=== PATIENT | female | born 1930 | race Caucasian/White ===

== ENCOUNTER 2019-08-30 05:14 | Inpatient (IN) ==
--- NOTE | 2019-08-30 05:31 | ERNOTE ---
Lower Extremity HPI - Narrative Date of Service: 08/30/19 - General Lower Extremities Pain: hip: left - Pain in the left hip Time Seen by Provider: 08/30/19 05:27 Source: EMS notes reviewed, correction records Exam Limitations: clinical condition - Immun/Allergies/Home Medications Immunizations: IMMUNIZATION HX Immunizations Up to Date Yes History of Influenza Vaccine Yes Hx Pneumococcal Vaccination No Allergies/Adverse Reactions: Allergies Allergy/AdvReac Type Severity Reaction Status Date / Time No Known Allergies Allergy Verified 08/30/19 05:21 Home Medications: HOME MEDICATIONS melatonin 10 mg tablet 10 mg PO DAILY 12/05/18 [Last Taken Unknown] naproxen sodium 220 mg tablet 220 mg PO BID PRN 12/05/18 [Last Taken Unknown] albuterol sulfate 2.5 mg INHALATION Q6H PRN #90 ml 12/08/18 [Last Taken Unknown] albuterol sulfate 90 mcg/actuation aerosol inhaler 2 inh IH Q4H PRN #8.5 g 12/09/18 [Last Taken Unknown] Albuterol Sulfate [Proair Hfa] 2 puff INHALATION Q4H PRN 08/30/19 [Last Taken Unknown] Amlodipine Besylate 2.5 mg PO DAILY 08/30/19 [Last Taken Unknown] Lisinopril/Hydrochlorothiazide [Lisinopril-Hctz 10-12.5 mg Tab] 1 ea PO DAILY 08/30/19 [Last Taken Unknown] Meloxicam 7.5 mg PO DAILY 08/30/19 [Last Taken Unknown] Memantine HCl 5 mg PO BID 08/30/19 [Last Taken Unknown] Menthol [Biofreeze (menthol)] 4 TOPICAL .COMPLEX PRN 08/30/19 [Last Taken Unkno wn] Montelukast Sodium [Singulair] 10 mg PO DAILY 08/30/19 [Last Taken Unknown] risperiDONE [Risperidone] 0.5 mg PO DAILY 08/30/19 [Last Taken Unknown] - History of Present Illness Narrative: 89-year-old female lives in the [facility] was found on the floor complaining of pain to the left side of her hip no other injuries were noted Date (Duration): 08/30/19 Time (Timing): 05:28 Occurred: just prior to arrival Location of Incident: other - custodial Method of Injury: Reports: fell Reason for Fall: Reports: unknown Loss of Consciousness: Reports: no loss of consciousness Associated Symptoms: Reports: unable to bear weight Other Injuries: Reports: none Review of Systems - Review of Systems Constitutional: Present: no symptoms reported EYE: Present: no symptoms reported ENT: Present: no symptoms reported Respiratory: Present: no symptoms reported Cardiology: Present: no symptoms reported Gastrointestinal/Abdominal: Present: no symptoms reported Genitourinary: Present: no symptoms reported Musculoskeletal: Present: joint pain Neurological: Present: other - Due to dementia Endocrine: Present: no symptoms reported Psych: Present: no symptoms reported All Other Systems: All systems neg except as marked Medical History (Last Reviewed 08/30/19 @ 05:30 by Yobani Schuler MD) Wheezing (Chronic) Onset Date: ~04/01/13 Shoulder pain (Chronic) Onset Date: ~04/01/13 Osteoarthritis (Chronic) Onset Date: Unknown Memory difficulty (Chronic) Onset Date: ~06/22/16 Hypothyroidism (Chronic) Onset Date: ~04/01/13 Hypertension (Chronic) Onset Date: ~10/02/13 Hyperlipidemia (Chronic) Onset Date: Unknown Asthma (Chronic) Onset Date: ~10/03/13 Bilateral bunions Mild Colonoscopy refused Onset Date: Unknown Difficulty walking Hammer toes, bilateral Onychomycosis Toe pain, bilateral Surgical History: Surgical History (Last Reviewed 08/30/19 @ 05:30 by Yobani Schuler MD) Hx of cholecystectomy Onset Date: Unknown Family History: Family History (Last Reviewed 07/16/19 @ 12:55 by Alicja Liz RN) Father Accident Mother Asthma Social History: (Last Updated 07/16/19 @ 13:55 by Elena Sanford DO) Social History: Marital status: / current occupational status: retired Service: No Tobacco: Smoking Status: Never smoker Alcohol: alcohol intake: never Substance Use: substance use type: does not use Dietary Habits: caffeine: Yes Type: coffee Physical Exam - Physical Exam General Appearance: Present: wd/wn, moderate distress, crying, other Head Exam: Present: normal inspection - Fused Eye Exam: Normal inspection: bilateral Ears, Nose, Throat: Present: normal ENT inspection Neck: Present: normal inspection Respiratory: Present: no respiratory distress Cardiovascular/Chest: Present: regular rate, rhythm Gastrointestinal/Abdominal: Present: normal bowel sounds Back Exam: Present: normal inspection, normal range of motion Extremity Exam: Present: normal inspection, decreased range of motion, bony tenderness, other - Limited movement of the left leg palpation of the left hip produces pain tenderness pulsatile strain. Absent: non-tender, normal range of motion Neurological Exam: Present: disoriented to person, disoriented to time, disoriented to place, disoriented to situation Skin Exam: Present: normal color Lymphatic Exam: Present: no adenopathy Progress - Vital Signs Patient's Vital Signs:: I have reviewed the patient's vital signs. Vital Signs: Vital Signs 08/30/19 05:16 Temperature 36.8 C Pulse Rate 86 Respiratory Rate 12 Blood Pressure 195/79 H O2 Sat by Pulse Oximetry 94 - EKG EKG #1 EKG: NSR EKG read: Interp. by me EKG Comments: EKG poor tracing a lot of artifact heart rate 89 sinus right bundle branch block LVH first-degree AV block - X-Ray X-Ray #1 X-Ray: hip Interpretation: Interp. by me X-ray Comments: Femoral neck fracture left side just below the head of the femur - Progress/Reassessment Chief Complaint: Hip Pain/Injury Departure Clinical Impression: Fracture of hip, left, closed - Departure Disposition: Still a patient Condition: Good Referrals: Elena Sanford DO [Primary Care Provider] -
[2019-08-30 06:02] LABS: Hemoglobin 14.2 gm/dL (12.5-16.0); Mean Cell Volume 97.1 fl (78-100); Mean Corpuscular Hemoglobin 31.3 pg (27-31); Mean Corpuscular Hgb Conc 32.3 g/dl (32-36); Mean Platelet Volume 9.1 fl (8-12.5); Neutrophil # 4.9 K/mm3 (1.3-6.0); Platelet Count 204 K/mm3 (150-450); Red Blood Count 4.53 M/mm3 (4.2-5.4); Red Cell Distribution Width 13.2 % (11.5-14.0); White Blood Count 8.2 K/mm3 (4.0-10.5)
[2019-08-30 06:13] LABS: INR 1.08 INR (0.92-1.08); Prothrombin Time (Patient) 10.7 Seconds (9.1-10.7)
[2019-08-30 06:22] LABS: Albumin * 3.4 gm/dl (3.4-5.0); Anion Gap 11.5 mmol/L (6.8-13.8); BUN/Creatinine Ratio 32.5 (9.0-21.6); Bilirubin, Total 0.3 mg/dL (0.0-1.1); Ca. Corrected For Albumin 9.4 mg/dL (8.4-10.2); Calcium * 9.2 mg/dL (7.9-10.9); Carbon Dioxide 29.9 mmol/L (24-32.6); Potassium 3.4 mmol/L (3.4-4.6); Total Protein 6.9 gm/dL (6.2-8.2)
[2019-08-30] MEDS ORDERED: MORPHINE SULFATE 4 MG/ML SYRG IV PRN (07:34)
[2019-08-30] MEDS: NORMAL SALINE 1,000 ML IV PRN ×2 (07:58→19:24)
[2019-08-30] MEDS ORDERED: ENOXAPARIN SODIUM 40 MG/0.4 ML SYRG SC SCH (09:45)
[2019-08-30] MEDS ORDERED: ALBUTEROL SULFATE 200 PUFF INHALER IH PRN (09:48)
[2019-08-30] MEDS ORDERED: POLYVINYL ALCOHOL 150 DROP BTL EACHEYE PRN ×2 (09:48→11:27)
[2019-08-30] MEDS ORDERED: ceFAZolin SODIUM 1 GM in DEXTROSE 5 % IN WATER 100 ML IV ONE ×2 (09:53)
--- NOTE | 2019-08-30 10:01 | CONS ---
HPI - General Date of Service: 08/30/19 Source: family - History of Present Illness Initial Comments: Mrs. Hameed is an 81-year-old female who is a resident of the [facility] with advanced dementia. She was found by the nursing staff lying on the floor in her room complaining of left hip pain. She is unable to give any information regarding her injury due to her dementia. They report she has had knee replacement and hysterectomy surgery without any significant complications besides postoperative nausea and vomiting. Timing/Duration: 4-6 hours Allergies/Adverse Reactions: Allergies No Known Allergies Allergy (Verified 08/30/19 05:21) Home Medications: Home Medications Medication Instructions Recorded Last Taken melatonin 10 mg tablet 10 mg PO HS 12/05/18 Unknown naproxen sodium 220 mg tablet 220 mg PO BID PRN 12/05/18 Unknown Albuterol Sulfate [Proair Hfa] 2 puff INHALATION Q4H PRN 08/30/19 Unknown Amlodipine Besylate 2.5 mg PO DAILY 08/30/19 Unknown Timothy Emu Cream 1 applic TOPICAL BID 08/30/19 Unknown Carboxymethylcellulose Sodium 1 drp EACHEYE Q6H PRN 08/30/19 Unknown [Refresh Liquigel] Lisinopril/Hydrochlorothiazide 1 ea PO DAILY 08/30/19 Unknown [Lisinopril-Hctz 10-12.5 mg Tab] Meloxicam 7.5 mg PO DAILY 08/30/19 Unknown Memantine HCl 5 mg PO BID 08/30/19 Unknown Menthol [Biofreeze (menthol)] 1 applic TOPICAL TID PRN 08/30/19 Unknown Montelukast Sodium [Singulair] 10 mg PO HS 08/30/19 Unknown risperiDONE [Risperidone] 0.5 mg PO DAILY 08/30/19 Unknown Procedures Excision of semilunar cartilage of knee (12/26/01) Medications - Medications Current Medications: Current Medications Sodium Chloride (Sodium Chloride 0.9%) 1,000 mls @ 100 mls/hr IV .Q10H PRN PRN Reason: HYDRATION Stop: 09/29/19 07:34 Last Admin: 08/30/19 07:58 Dose: 100 mls/hr Documented by: Review of Systems - Review of Systems Narrative: Unable to obtain a review of systems due to patient's advanced dementia Physical Examination - Exam Narrative: Patient is lying in bed. Left hip is flexed and internally rotated. Patient does not respond to questions very well. She is able to wiggle her toes and her left foot. She is got a bounding 2+ dorsalis pedis pulse on her left foot. She responds to pain with logroll test of the left lower extremity. X-rays reviewed show a displaced subcapital hip fracture and varus. INR 1.08. Hemoglobin 14.2 g. Creatinine 0.77. Sodium is 145. Vital Signs: Vital Signs - Last Taken Temp 36.9 C 08/30/19 07:18 Pulse 89 08/30/19 07:18 Resp 20 08/30/19 07:18 BP 178/81 H 08/30/19 07:18 Pulse Ox 94 08/30/19 07:18 O2 Oxygen Delivery Method Room Air - Results and Findings: Lab/Microbiology results last 24 hrs: Abnormal/Pending Laboratory Last 24 HRS 08/30/19 08/30/19 05:50 05:50 MCH 31.3 H Immature Gran % (Auto) 0.50 H Immature Gran # (Auto) 0.04 H Sodium 145 H Plasma Sodium 145 H Chloride 107 H BUN 25 H BUN/Creatinine Ratio 32.5 H Random Glucose 112 H ALT 13 L - Assessments/Findings (1) Fracture of hip, left, closed Diagnosis(s): Discussed Ms. Hameed injury with her family members in the room and power of civil attorney. Recommend hemiarthroplasty. Risks discussed. We will have consents obtained from power of civil attorney. Patient will be n.p.o. at midnight tonight. She will get a gram of Ancef IV preoperatively tomorrow. Problem: Acute (2) Dementia Problem: Acute (3) Asthma Problem: Chronic (4) Hyperlipidemia Problem: Chronic Qualifiers: Hyperlipidemia type: pure hypercholesterolemia Qualified Code(s): E78.00 - Pure hypercholesterolemia, unspecified; E78.0 - Pure hypercholesterolemia (5) Hypertension Problem: Chronic Qualifiers: Hypertension type: essential hypertension Qualified Code(s): I10 - Essential (primary) hypertension
--- NOTE | 2019-08-30 10:06 | HP ---
Chief Complaint - Chief Complaint Date of Service: 08/30/19 Time of Service: 09:30 Chief Complaint: Left hip pain History of Present Illness: Bravo Hameed is an 89-year-old female patient of Dr. Elena Sanford. She was in her usual state of health living at the [facility] when she fell and injured her left hip. She was brought to the hospital and evaluated found to have a closed left hip fracture and subsequently admitted in preparation for ORIF planned for tomorrow. She has a history of hypertension and advanced Alzheimer's disease. She has been in good health generally speaking. She also has a history of arthritic complaints for which she takes meloxicam and uses Biofreeze and blue emu oil frequently. She was in quite a bit of pain earlier this morning when she came over from ER and she had not received any pain medication. I ordered 2 mg of morphine which helped some but she still restless. Another 3 mg have been administered and she is more comfortable. She does not respond to questions. She does recognize familiar faces sometimes but other times not. Medical History (Last Reviewed 08/30/19 @ 05:30 by Yobani Schuler MD) Wheezing (Chronic) Onset Date: ~04/01/13 Shoulder pain (Chronic) Onset Date: ~04/01/13 Osteoarthritis (Chronic) Onset Date: Unknown Memory difficulty (Chronic) Onset Date: ~16 Hypothyroidism (Chronic) Onset Date: ~04/01/13 Hypertension (Chronic) Onset Date: ~10/02/13 Hyperlipidemia (Chronic) Onset Date: Unknown Asthma (Chronic) Onset Date: ~10/03/13 Bilateral bunions Mild Colonoscopy refused Onset Date: Unknown Difficulty walking Hammer toes, bilateral Onychomycosis Toe pain, bilateral Surgical History: Surgical History (Last Reviewed 08/30/19 @ 08:03 by Julienne Conroy RN) Hx of cholecystectomy Onset Date: Unknown Family History: Family History (Last Reviewed 08/30/19 @ 08:03 by Julienne Conroy RN) Father Accident Mother Asthma Social History: (Last Reviewed 08/30/19 @ 08:03 by Julienne Conroy RN) Social History: Marital status: / current occupational status: retired Service: No Tobacco: Smoking Status: Never smoker Alcohol: alcohol intake: never Substance Use: substance use type: does not use Dietary Habits: caffeine: Yes Type: coffee Review Of Systems (GEN) - Review of Systems Generalized/Overall Review: Present: No Symptoms Reported EENTM: Present: No Symptoms Reported Respiratory: Present: No Symptoms Reported Cardiac: Present: No Symptoms Reported Abdominal: Present: No Symptoms Reported Genitourinary: Present: No Symptoms Reported Musculoskeletal: Present: Joint Pain - Left hip due to fracture and polyarthr algias Neurological: Present: Other - Advanced late onset Alzheimer's dementia Skin: Present: No Symptoms Reported Endocrine: Present: No Symptoms Reported Misc: All systems neg except as marked Immunizations: IMMUNIZATION HX Immunizations Up to Date Yes History of Influenza Vaccine Yes Hx Pneumococcal Vaccination No Allergies/Adverse Reactions: Allergies Allergy/AdvReac Type Severity Reaction Status Date / Time No Known Allergies Allergy Verified 08/30/19 05:21 Home Medications: HOME MEDICATIONS melatonin 10 mg tablet 10 mg PO HS 12/05/18 [Last Taken Unknown] naproxen sodium 220 mg tablet 220 mg PO BID PRN 12/05/18 [Last Taken Unknown] Albuterol Sulfate [Proair Hfa] 2 puff INHALATION Q4H PRN 08/30/19 [Last Taken Unknown] Amlodipine Besylate 2.5 mg PO DAILY 08/30/19 [Last Taken Unknown] Timothy Emu Cream 1 applic TOPICAL BID 08/30/19 [Last Taken Unknown] Carboxymethylcellulose Sodium [Refresh Liquigel] 1 drp EACHEYE Q6H PRN 08/30/19 [Last Taken Unknown] Lisinopril/Hydrochlorothiazide [Lisinopril-Hctz 10-12.5 mg Tab] 1 ea PO DAILY 08/30/19 [Last Taken Unknown] Meloxicam 7.5 mg PO DAILY 08/30/19 [Last Taken Unknown] Memantine HCl 5 mg PO BID 08/30/19 [Last Taken Unknown] Menthol [Biofreeze (menthol)] 1 applic TOPICAL TID PRN 08/30/19 [Last Taken Unknown] Montelukast Sodium [Singulair] 10 mg PO HS 08/30/19 [Last Taken Unknown] risperiDONE [Risperidone] 0.5 mg PO DAILY 08/30/19 [Last Taken Unknown] Exam - Exam Vital Signs: Vital Signs - Last Taken Temp 36.9 C 08/30/19 07:18 Pulse 89 08/30/19 07:18 Resp 20 08/30/19 07:18 BP 178/81 H 08/30/19 07:18 Pulse Ox 94 08/30/19 07:18 Constitutional: Present: Mild distress, Obese ENT Exam: Present: normal ENT inspection, hearing grossly normal, pharynx normal Eye Exam: bilateral eye: normal inspection, PERRL, EOMI Neck: Present: non-tender, limited range of motion Back Exam: Present: normal inspection Breasts: Present: Exam deferred Respiratory: Present: chest non-tender, lungs clear, normal breath sounds, no respiratory distress, no accessory muscle use, No rales, No wheezing Cardiovascular/Chest: Present: normal peripheral pulses, regular rate, rhythm, no chest tenderness, no edema Extremity: Present: other - The left leg is shortened and externally rotated Lymphatic: Present: no adenopathy Neurologic: Present: mohs surgeon/general dermatologist II-XII nml as tested Appearance: Present: appropriate appearance, impaired insight, impaired recent memory Eye contact: Present: other - Unable to cooperate or answer questions or follow commands Thoughts: Present: incoherent Diagnostic Studies: Abnormal Lab Results 08/30/19 08/30/19 Range/Units 05:50 05:50 MCH 31.3 H (27-31) pg Immature Gran % (Auto) 0.50 H (0.001-0.429) % Immature Gran # (Auto) 0.04 H (0.000-0.0310) K/mm3 Sodium 145 H (132-142) mmol/L Plasma Sodium 145 H (130-142) mmol/L Chloride 107 H (97-106) mmol/L BUN 25 H (3-23) mg/dL BUN/Creatinine Ratio 32.5 H (9.0-21.6) Random Glucose 112 H (70-110) mg/dL ALT 13 L (19-67) U/L Laboratory Results WBC 8.2 K/mm3 (4.0-10.5) 08/30/19 05:50 RBC 4.53 M/mm3 (4.2-5.4) 08/30/19 05:50 Hgb 14.2 gm/dL (12.5-16.0) 08/30/19 05:50 Hct 44.0 % (37.0-47.0) 08/30/19 05:50 MCV 97.1 fl (78-100) 08/30/19 05:50 MCH 31.3 pg (27-31) H 08/30/19 05:50 MCHC 32.3 g/dl (32-36) 08/30/19 05:50 RDW 13.2 % (11.5-14.0) 08/30/19 05:50 Plt Count 204 K/mm3 (150-450) 08/30/19 05:50 MPV 9.1 fl (8-12.5) 08/30/19 05:50 Immature Gran % (Auto) 0.50 % (0.001-0.429) H 08/30/19 05:50 Immature Gran # (Auto) 0.04 K/mm3 (0.000-0.0310) H 08/30/19 05:50 Neutrophils % 60.0 % (42-75.0) 08/30/19 05:50 Lymphocytes % 31.4 % (20-51) 08/30/19 05:50 Monocytes % 6.2 % (0.0-9) 08/30/19 05:50 Eosinophils % 1.3 % (0.0-3.0) 08/30/19 05:50 Basophils % 0.6 % (0.0-1.0) 08/30/19 05:50 Nucleated RBC % 0.0 k/mm3 (0-1) 08/30/19 05:50 Neutrophils # 4.9 K/mm3 (1.3-6.0) 08/30/19 05:50 Lymphocytes # 2.58 k/mm3 (1.5-3.5) 08/30/19 05:50 Monocytes # 0.5 k/mm3 (0.0-1.0) 08/30/19 05:50 Eosinophils # 0.1 k/mm3 (0.0-0.7) 08/30/19 05:50 Absolute Basophils 0.1 k/mm3 (0.0-0.1) 08/30/19 05:50 PT 10.7 Seconds (9.1-10.7) 08/30/19 05:50 INR (Anticoag Therapy) 1.08 INR (0.92-1.08) 08/30/19 05:50 PTT (Luiza) 26.0 Seconds (24-32) 08/30/19 05:50 Sodium 145 mmol/L (132-142) H 08/30/19 05:50 Plasma Sodium 145 mmol/L (130-142) H 08/30/19 05:50 Potassium 3.4 mmol/L (3.4-4.6) 08/30/19 05:50 Chloride 107 mmol/L (97-106) H 08/30/19 05:50 Carbon Dioxide 29.9 mmol/L (24-32.6) 08/30/19 05:50 Anion Gap 11.5 mmol/L (6.8-13.8) 08/30/19 05:50 BUN 25 mg/dL (3-23) H 08/30/19 05:50 Creatinine 0.77 mg/dL (0.4-1.4) 08/30/19 05:50 Est GFR (Non-Af Amer) 75 mL/min (60-130) 08/30/19 05:50 BUN/Creatinine Ratio 32.5 (9.0-21.6) H 08/30/19 05:50 Random Glucose 112 mg/dL (70-110) H 08/30/19 05:50 Calcium 9.2 mg/dL (7.9-10.9) 08/30/19 05:50 Calcium Adj for Albumin 9.4 mg/dL (8.4-10.2) 08/30/19 05:50 Total Bilirubin 0.3 mg/dL (0.0-1.1) 08/30/19 05:50 AST 15 U/L (0-48) 08/30/19 05:50 ALT 13 U/L (19-67) L 08/30/19 05:50 Alkaline Phosphatase 71 U/L (50-170) 08/30/19 05:50 B-Natriuretic Peptide 83 pg/mL (5-550) 08/30/19 05:50 Total Protein 6.9 gm/dL (6.2-8.2) 08/30/19 05:50 Albumin 3.4 gm/dl (3.4-5.0) 08/30/19 05:50 Blood Type O Positive 08/30/19 05:50 Antibody Screen Negative 08/30/19 05:50 Assessment/Plan - Narrative Narrative: Mrs. Hameed will be prepared for ORIF of her left hip tentatively planned for tomorrow. I will manage her pain with IV morphine to the extent necessary. And will start feeding her at lunch today and make her n.p.o. after midnight. I reconciled her medicines and continued majority. I will order morning lab. I will order an EKG to be done today. - Assessment/Plan (1) Fracture of hip, left, closed Problem: Acute (2) Osteoarthritis Problem: Chronic Qualifiers: Osteoarthritis location: unspecified site Osteoarthritis type: unspecified Qualified Code(s): M19.90 - Unspecified osteoarthritis, unspecified site (3) Hypothyroidism Problem: Chronic Qualifiers: Hypothyroidism type: acquired (4) Hypertension Problem: Chronic Qualifiers: Hypertension type: essential hypertension
[2019-08-30] MEDS ORDERED: ALBUTEROL SULFATE 2.5 MG/0.5 ML VIAL.NEB IH PRN (10:15)
[2019-08-30] MEDS ORDERED: LISINOPRIL 10 MG TABLET PO SCH (10:21)
[2019-08-30] MEDS ORDERED: ENOXAPARIN SODIUM 40 MG/0.4 ML SYRG SC ONE (10:30)
[2019-08-30] MEDS: LISINOPRIL 10 MG TABLET PO SCH (11:03)
[2019-08-30] MEDS: amLODIPine BESYLATE 5 MG TABLET PO SCH (11:03)
[2019-08-30] MEDS: MORPHINE SULFATE 4 MG/ML SYRG IV PRN ×3 (12:20→22:59)
[2019-08-30] MEDS ORDERED: amLODIPine BESYLATE 5 MG TABLET PO ONE (19:55)
[2019-08-30] MEDS: MELATONIN 3,000 MCG TABLET PO SCH (20:03)
[2019-08-30] MEDS: BLU EMU topical SCH (20:03)
[2019-08-30] MEDS: MEMANTINE HCL 10 MG TABLET PO SCH (20:04)
[2019-08-30] MEDS: risperiDONE 0.25 MG TABLET PO SCH (20:04)
[2019-08-30] MEDS: MONTELUKAST SODIUM 10 MG TABLET PO SCH (20:04)
[2019-08-31] MEDS: NORMAL SALINE 1,000 ML IV PRN ×2 (04:07→21:03)
[2019-08-31] MEDS: MORPHINE SULFATE 4 MG/ML SYRG IV PRN ×2 (05:36→10:22)
[2019-08-31 06:56] LABS: Hematocrit 41.5 % (37.0-47.0); Hemoglobin 13.7 gm/dL (12.5-16.0); Mean Corpuscular Hemoglobin 31.4 pg (27-31); Mean Platelet Volume 9.1 fl (8-12.5); Neutrophil # 7.5 K/mm3 (1.3-6.0); Neutrophil % 79.9 % (42-75.0); Platelet Count 187 K/mm3 (150-450); Red Blood Count 4.37 M/mm3 (4.2-5.4); Red Cell Distribution Width 13.2 % (11.5-14.0); White Blood Count 9.4 K/mm3 (4.0-10.5)
[2019-08-31 07:20] LABS: Albumin * 2.8 gm/dl (3.4-5.0); Anion Gap 8.6 mmol/L (6.8-13.8); Bilirubin, Total 0.8 mg/dL (0.0-1.1); Ca. Corrected For Albumin 8.8 mg/dL (8.4-10.2); Calcium * 8.2 mg/dL (7.9-10.9); Carbon Dioxide 27.8 mmol/L (24-32.6); Potassium 3.4 mmol/L (3.4-4.6); Total Protein 6.4 gm/dL (6.2-8.2)
[2019-08-31] MEDS ORDERED: LISINOPRIL 10 MG TABLET PO SCH (09:00)
[2019-08-31] MEDS ORDERED: MELOXICAM 7.5 MG TABLET PO SCH (09:00)
[2019-08-31] MEDS: BLU EMU topical SCH ×2 (09:35→21:04)
[2019-08-31] MEDS: HYDROCHLOROTHIAZIDE 12.5 MG CAPSULE PO SCH (09:39)
[2019-08-31] MEDS: MEMANTINE HCL 10 MG TABLET PO SCH ×2 (09:39→21:05)
[2019-08-31] MEDS: LISINOPRIL 10 MG TABLET PO SCH (09:39)
[2019-08-31] MEDS: amLODIPine BESYLATE 5 MG TABLET PO SCH (09:41)
--- NOTE | 2019-08-31 10:53 | PN ---
Subjective - Date and Time Seen Date: 08/31/19 Time: 10:42 Subjective Narrative: Bravo Hameed is an 89-year-old female patient of Dr. Sanford who has been cared for an ORIF of her fractured hip. She gets restless when the pain intensifies. 3 mg of morphine every 3 hours has been adequate for the most part. Medically she remained stable. Heart rate is 88. Blood pressure is 137/76. Respirations are 14 and unlabored. Her O2 saturation is normal. Her morning lab shows normal hemoglobin and hematocrit white count and platelets. Chemistries are normal. She is medically cleared to proceed with the planned ORIF of her fractured hip. Objective - Review of Systems Generalized/Overall Review: Reports: Weakness EENTM: Reports: No Symptoms Reported Respiratory: Reports: No Symptoms Reported Cardiac: Reports: No Symptoms Reported Abdominal: Reports: No Symptoms Reported Genitourinary Symptoms: Reports: No Symptoms Reported Musculoskeletal Complaints: Reports: Joint Pain - Displaced left femoral neck fracture Neurological: Reports: No Symptoms Reported Skin: Reports: No Symptoms Reported Endocrine: Reports: No Symptoms Reported - Vitals Vitals: Last Vital Signs Temp 37.2 C 08/31/19 06:47 Pulse 95 08/31/19 09:41 Resp 18 08/31/19 06:47 BP 172/93 H 08/31/19 09:41 Pulse Ox 97 08/31/19 06:47 - Abnormal Lab Findings Abnormal Lab Findings: Abnormal Lab Results 08/31/19 08/31/19 Range/Units 06:37 06:37 MCH 31.4 H (27-31) pg Neutrophils % 79.9 H (42-75.0) % Lymphocytes % 11.3 L (20-51) % Neutrophils # 7.5 H (1.3-6.0) K/mm3 Lymphocytes # 1.06 L (1.5-3.5) k/mm3 Chloride 107 H (97-106) mmol/L BUN/Creatinine Ratio 28.0 H (9.0-21.6) Random Glucose 112 H (70-110) mg/dL ALT 12 L (19-67) U/L Albumin 2.8 L (3.4-5.0) gm/dl - EKG/Xray Findings EKG: NSR EKG read: Reviewed by me XRAY: hip - And chest x-ray. Interpretation: Reviewed by me - Exam Constitutional: Present: Well developed, Well nourished, Moderate distress - When her hip is hurting, Somnolent, Elderly, Obese ENT Exam: Present: normal ENT inspection, hearing grossly normal, pharynx normal, TMs normal Neck: Present: non-tender, full range of motion, supple, normal inspection Breasts: Present: Exam deferred Respiratory: Present: chest non-tender, lungs clear, normal breath sounds, no respiratory distress, no accessory muscle use Cardiovascular/Chest: Present: normal peripheral pulses, regular rate, rhythm, no chest tenderness, no edema, no gallop, no JVD, no murmur, no rub Abdomen: Present: Normal bowel sounds, soft, nontender, nondistended /Rectal: Present: Exam deferred Extremity: Present: other - Pain of the left hip with palpation or motion. Skin Exam: Present: normal color, warm/dry, no cyanosis Lymphatic: Present: no adenopathy Neurologic: Present: marine air ground task force planners II-XII nml as tested, other - No motor deficits in the left lower extremity Appearance: Present: appropriate appearance, appropriate insight, neat, impaired insight, impaired recent memory, impaired remote memory Eye contact: Present: other - Unable to cooperate or follow commands Thoughts: Present: other - Unable to assess Cauti Physician Documentation - Urinary Catheter Management Urethral ([place]) Date of Insertion: 08/30/19 Time of Insertion: 07:04 Assessment/Plan Plan Narrative: 1. Reviewed morning lab 2. Proceed with planned ORIF of the left hip 3. Continue routine medical management pre-and postoperatively. 4. Repeat lab tomorrow morning. - Problems/Diagnosis (1) Fracture of hip, left, closed Problem: Acute Qualifiers: Encounter type: initial encounter Qualified Code(s): S72.002A - Fracture of unspecified part of neck of left femur, initial encounter for closed fracture (2) Osteoarthritis Problem: Chronic Qualifiers: Osteoarthritis location: unspecified site Osteoarthritis type: unspecified Qualified Code(s): M19.90 - Unspecified osteoarthritis, unspecified site (3) Hypothyroidism Problem: Chronic Qualifiers: Hypothyroidism type: acquired (4) Hypertension Problem: Chronic Qualifiers: Hypertension type: essential hypertension Qualified Code(s): I10 - Essential (primary) hypertension (5) Alzheimer's dementia, late onset, with behavioral disturbance Problem: Acute
--- NOTE | 2019-08-31 13:13 | ANES ---
Anesthesia Pre Procedure Eval Vitals/Labs: Last Vital Signs Temp 37.2 C 08/31/19 12:00 Pulse 102 H 08/31/19 12:00 Resp 22 H 08/31/19 12:00 BP 150/85 H 08/31/19 12:00 Pulse Ox 96 08/31/19 12:00 HOME MEDICATIONS melatonin 10 mg tablet 10 mg PO HS 12/05/18 [Last Taken Unknown] naproxen sodium 220 mg tablet 220 mg PO BID PRN 12/05/18 [Last Taken Unknown] Albuterol Sulfate [Proair Hfa] 2 puff INHALATION Q4H PRN 08/30/19 [Last Taken Unknown] Amlodipine Besylate 2.5 mg PO DAILY 08/30/19 [Last Taken Unknown] Timothy Emu Cream 1 applic TOPICAL BID 08/30/19 [Last Taken Unknown] Carboxymethylcellulose Sodium [Refresh Liquigel] 1 drp EACHEYE Q6H PRN 08/30/19 [Last Taken Unknown] Lisinopril/Hydrochlorothiazide [Lisinopril-Hctz 10-12.5 mg Tab] 1 ea PO DAILY 08/30/19 [Last Taken Unknown] Meloxicam 7.5 mg PO DAILY 08/30/19 [Last Taken Unknown] Memantine HCl 5 mg PO BID 08/30/19 [Last Taken Unknown] Menthol [Biofreeze (menthol)] 1 applic TOPICAL TID PRN 08/30/19 [Last Taken Unknown] Montelukast Sodium [Singulair] 10 mg PO HS 08/30/19 [Last Taken Unknown] risperiDONE [Risperidone] 0.5 mg PO DAILY 08/30/19 [Last Taken Unknown] Allergies/Adverse Reactions: Allergies Allergy/AdvReac Type Severity Reaction Status Date / Time No Known Allergies Allergy Verified 08/30/19 05:21 - Planned Procedure Planned Procedure: Left Hip Fracture Medication List Reviewed:: Yes Allergies Verified: Yes Medical History (Last Reviewed 08/31/19 @ 13:13 by Hemal Silva CRNA) Wheezing (Chronic) Onset Date: ~04/01/13 Shoulder pain (Chronic) Onset Date: ~04/01/13 Osteoarthritis (Chronic) Onset Date: Unknown Memory difficulty (Chronic) Onset Date: ~06/22/16 Hypothyroidism (Chronic) Onset Date: ~04/01/13 Hypertension (Chronic) Onset Date: ~10/02/13 Hyperlipidemia (Chronic) Onset Date: Unknown Asthma (Chronic) Onset Date: ~10/03/13 Bilateral bunions Mild Colonoscopy refused Onset Date: Unknown Difficulty walking Hammer toes, bilateral Onychomycosis Toe pain, bilateral Surgical History (Last Reviewed 08/31/19 @ 13:13 by Hemal Silva CRNA) Hx of cholecystectomy Onset Date: Unknown Family History (Last Reviewed 08/31/19 @ 13:13 by Hemal Silva CRNA) Father Accident Mother Asthma - Family Anesthesia History Family History:: no untoward family reactions to anesthesia - Airway/Neck/Teeth Within Normal Limits:: Yes Teeth Condition: intact Neck Exam: full range of motion Mallampatti Score: 2 Thyromental (T-M) distance: > 6 cm Mandibulo Hyoid distance: > 3 cm - Respiratory Respiratory History: asthma Respiratory Physical: lungs clear Smoking Status: Never smoker Sleep Apnea currently treated: No Sleep Apnea by current assessment: No - Cardiovascular Cardiac History: hypertension Tolerate Activity: Fair Heart Sounds: S1 & S2, Regular - Anesthesia Assessment and Plan ASA Class: PS, III Anesthesia Type Plan: Spinal Planned difficult intubation/equipment available: No
[2019-08-31] MEDS ORDERED: PROPOFOL VIAL IV ONE (13:16)
[2019-08-31] MEDS ORDERED: BUPIVACAINE HCL/PF 10 ML VIAL ONE (13:16)
--- NOTE | 2019-08-31 13:39 | PREOP NOTE ---
Preoperative Progress Note - Preoperative Changes Changes to Preop Condition?: No Changes
[2019-08-31] MEDS ORDERED: ceFAZolin SODIUM 1 GM VIAL ONE (14:23)
[2019-08-31] MEDS ORDERED: RINGER'S SOLUTION,LACTATED 1,000 ML IV PRN (14:53)
[2019-08-31] MEDS ORDERED: ONDANSETRON HCL/PF 2 MG/ML VIAL IV PRN (16:05)
[2019-08-31] MEDS ORDERED: MAG HYDROX/ALUMINUM HYD/SIMETH 30 ML UDC PO PRN (16:05)
[2019-08-31] MEDS ORDERED: MAGNESIUM HYDROXIDE 30 ML UDC PO PRN (16:05)
--- NOTE | 2019-08-31 16:11 | OR ---
Operative Report - Dictated Report Narrative: Date: 08/31/2019 Preoperative diagnosis: Closed left hip displaced femoral neck fracture. Postoperative diagnosis: Closed left hip displaced femoral neck fracture Procedure: Left hip cemented liang-arthroplasty. Surgeon: Elías Nunes M.D. Senior Staff Psychologist: Liu Mathew PA-C (provided essential set of skilled, educated hands that assisted with transfer, positioning, prepping, draping, retraction, manipulation, placement of implants, irrigation, closure wounds, and application of dressings all of which could not be performed by the available surgical crew) Anesthesia: Spinal. Complications: None Specimens: Bone. Estimated blood loss: 150 milliliters. Retained implants: Depuy Motley size 4 basic cemented femoral stem. Size 45 millimeter outside diameter self-centering bipolar head with +1.5 millimeter cobalt chromium 28 mm femoral head. Indications: Mrs. Hameed is a 89-year-old female with dementia who fell at a long term. This patient was evaluated on the floor and found to have sustained a displaced femoral neck fracture. The risks and benefits were discussed with the patient as well as any power of litigation attorney or family . The patient wished to proceed with surgical treatment. The risks, benefits, and alternatives discussed were , blood clots, bleeding, infection, nerve/tendon blood vessel/ injury, malposition of components, dislocation and/or instability of joint, intraoperative fracture, postoperative limited range of motion, persistent pain, failure of components, and need for additional procedures. Patient wished to proceed. Consent was obtained after answering all questions. Procedure: After marking the correct extremity on the floor, the patient was taken to the operating room. A timeout was performed. IV antibiotics consisting of Ancef were administered prior to the procedure. A spinal anesthetic was induced by anesthesia. A Hudson catheter was inserted if not are in place. The patient was then transitioned to a lateral position on a well- padded pegboard. An axillary roll was placed. The head was in neutral pos ition. The non-operative down leg was well-padded with SCD and FIOR hose in place. The arms were supported and padded to protect from any undue pressure on the bony prominences and nerves. Well-padded anterior and posterior pelvic and chest posts were secured in order to maintain a stable position of the pelvis. This was placed so that the pelvis was perpendicular to the floor. The body was in line with the pelvis. Once it was felt that we had protected all the bony prominences and the patient was well secured with a safety belt as well, the leg was pre-scrubbed with alcohol, prepped and draped in a standard sterile fashion. A standard anterior lateral hip incision was marked out over the greater trochanter. Ioban drapes were then placed. The skin incision was then made. Sharp dissection with a scalpel utilizing cautery for hemostasis was carried out down to the gluteus and iliotibial band fascia. This was split in line with the skin incision. The greater trochanter bursa was excised. The anterior and posterior margins of the abductor tendon were identified. The anterior 1/2-1/3 of the tendon was tagged and reflected off the greater trochanter leaving a sleeve of tendon for repair at the completion of the case. This exposed the underlying hip joint capsule. An inverted T-type capsulotomy was made extending this up to the brim of the acetabulum. We encountered a hematoma at this point confirming an acute fracture as well as noted displacement of the femoral neck fracture. Using Homans to assist with elevation of the soft tissues off the anterior, superior, and inferior aspects of the femoral neck, the hip was then placed in a figure 4 position for a femoral neck cleanup cut to be made. With the leg in an externally rotated and adducted position, the cutting flag was utilized in order to donaldo for a standard femoral neck cut approximately a fingerbreadth above the level of the lesser trochanter. This was done while protecting the surrounding soft tissues with Homans. The femoral head was then removed and sized for guidance on the size of the bipolar head. It was noted that there was no significant loss of articular cartilage on both the femoral head and weightbearing portions of the acetabulum. We then returned the leg to the table and turned our attention to the acetabulum. While protecting the surrounding soft tissues, the labrum and remaining tissue in the fovea were excised using a scalpel and cautery. The acetabulum was then protected with a sponge while we returned our attention to the femur. With the leg in a figure 4 position utilizing Homans for soft tissue protection, a box cutting osteotome, followed by Charjenniferey awl, followed by serial broaches were utilized in order to prepare the femur. It was found that a size 4 broach gave good axial and rotational stability. The proximal femur was visualized to ensure that there were no signs of fracture. A series of heads were trialed. It was found that a + 1.5 mm femoral head gave good overall stability. There is minimal longitudinal instability. Hip range of motion was able to reach full extension and external rotation to greater than 75 degrees prior to impingement along the posterior acetabulum. The hip was able to be flexed to greater than 90 degrees with internal rotation greater than 60 degrees prior to anterior impingement. The limb lengths were near equal based on comparison to the contralateral side . At this point was felt this was the appropriately sized femoral components as well as neck and femoral head. The trial implants were removed. A canal cement plug was placed distally and the canal was thoroughly irrigated using pulsatile vacuum brush device. The canal was then thoroughly dried with a suction device. The cement was vacuum mixed per the channel cementer insole machine's instructions and placed into a cement gun. Cement was then placed in the dry irrigated femur using modern cementing technique using a pressurizing device. The stem was then placed in the appropriate version compared to her [place] anatomy and held in place while the cement cured and the extruded cement was removed. Once the cement was fully cured, we ensured that the stem was stable and that there were no signs of fracture. The remaining extruded cement was removed, and the joint and the capsule were thoroughly evaluated to ensure there are no cement fragments. The final femoral bipolar head was then impacted in the place. The hip was then reduced and seated completely. The capsule was repaired with a single interrupted #1 Vicryl. The abductor tendon was repaired to the greater trochanter utilizing #5 Ethibond through drill holes. This was oversewn with #1 Vicryl. The fascia was closed with interrupted #1 Vicryl and strata fix barbed suture. The wounds were thoroughly irrigated as we closed in layers. The deep and subcutaneous fat layers were closed with 0 Vicryl. The subcutaneous tissue was closed with a running 3-0 Vicryl and the skin with ritchie. All sponge, needle, blade, and instrument counts were correct prior to closing the wounds. Sterile dressings consisting of Xeroform, 4 x 4's, ABD, and tape were applied. The patient was awoken and transferred to her hospital bed and then to the postanesthesia care unit in stable condition. Postoperative condition: The plan is to return to the medical/surgical inpatient floor postoperatively. Postoperatively 24 hours of IV antibiotics, pain control, physical therapy, occupational therapy, and medical comanagement will be utilized. Patient will be weightbearing as tolerated with anterior hip precautions. Postoperative films will be obtained in the recovery room.
--- NOTE | 2019-08-31 16:24 | ANES ---
Post Anesthesia Assessment - Vital Signs Vitals: Last Vital Signs Temp 37.6 C 08/31/19 16:15 Pulse 78 08/31/19 16:20 Resp 25 H 08/31/19 16:20 BP 124/43 08/31/19 16:20 Pulse Ox 95 08/31/19 16:20 Airway Patency: Normal - Mental Status Level Of Consciousness: Awake - Pain Level Pain Score: 0 - N/V Assessment Nausea/Vomiting Presence: None Dehydration:: No
--- NOTE | 2019-08-31 16:24 | ANES ---
Post Anesthesia Discharge - Transfer of Care Transfer of Care handoff given to nurse: Yes - Discharge from PACU Discharge from PACU when meets criteria: Yes - Discharge to ASU Discharge to ASU-no complications/pt stable: Yes
[2019-08-31] MEDS: ceFAZolin SODIUM 1 GM in DEXTROSE 5 % IN WATER 100 ML IV SCH ×2 (17:10)
[2019-08-31] MEDS: KETOROLAC TROMETHAMINE 15 MG/ML VIAL IV SCH ×2 (17:11→22:50)
[2019-08-31] MEDS: HYDROcodone/ACETAMINOPHEN 1 EACH TABLET PO PRN (19:43)
[2019-08-31] MEDS: SENNOSIDES/DOCUSATE SODIUM 1 TAB TABLET PO SCH (21:04)
[2019-08-31] MEDS: MONTELUKAST SODIUM 10 MG TABLET PO SCH (21:05)
[2019-08-31] MEDS: risperiDONE 0.25 MG TABLET PO SCH (21:05)
[2019-08-31] MEDS: MELATONIN 3,000 MCG TABLET PO SCH (21:05)
[2019-09-01] MEDS: ceFAZolin SODIUM 1 GM in DEXTROSE 5 % IN WATER 100 ML IV SCH ×4 (00:30→05:32)
[2019-09-01] MEDS: KETOROLAC TROMETHAMINE 15 MG/ML VIAL IV SCH ×4 (04:20→22:51)
[2019-09-01 06:21] LABS: Hemoglobin 12.4 gm/dL (12.5-16.0); Mean Cell Volume 94.9 fl (78-100); Mean Corpuscular Hemoglobin 31.8 pg (27-31); Mean Corpuscular Hgb Conc 33.5 g/dl (32-36); Mean Platelet Volume 9.3 fl (8-12.5); Platelet Count 144 K/mm3 (150-450); Red Cell Distribution Width 13.2 % (11.5-14.0); White Blood Count 9.9 K/mm3 (4.0-10.5)
[2019-09-01 06:30] LABS: Anion Gap 11.1 mmol/L (6.8-13.8); BUN/Creatinine Ratio 20.3 (9.0-21.6); Calcium * 8.1 mg/dL (7.9-10.9); Carbon Dioxide 26.9 mmol/L (24-32.6); Estimated Creat Clear 40.2
--- NOTE | 2019-09-01 07:08 | PN ---
Subjective - Date and Time Seen Date: 09/01/19 Time: 07:07 Subjective Narrative: No acute concerns from nursing overnight. Unable to obtain history from her due to her dementia. Objective - Review of Systems Generalized/Overall Review: Reports: No Symptoms Reported - Unable to obtain ROS due to her dementia - Vitals Vitals: Last Vital Signs Temp 37.2 C 08/31/19 17:00 Pulse 102 H 09/01/19 04:47 Resp 18 09/01/19 04:47 BP 158/86 H 09/01/19 04:47 Pulse Ox 97 09/01/19 04:47 - Abnormal Lab Findings Abnormal Lab Findings: Abnormal Lab Results 08/31/19 09/01/19 09/01/19 Range/Units 06:37 06:10 06:10 RBC 3.90 L (4.2-5.4) M/mm3 Hgb 12.4 L (12.5-16.0) gm/dL MCH 31.8 H (27-31) pg Plt Count 144 L (150-450) K/mm3 Potassium 3.0 L (3.4-4.6) mmol/L Chloride 107 H (97-106) mmol/L BUN/Creatinine Ratio 28.0 H (9.0-21.6) Random Glucose 112 H 122 H (70-110) mg/dL ALT 12 L (19-67) U/L Albumin 2.8 L (3.4-5.0) gm/dl - Exam Constitutional: Present: No distress, Elderly Respiratory: Present: normal breath sounds, no respiratory distress Cardiovascular/Chest: Present: regular rate, rhythm Abdomen: Present: soft, nontender Extremity: Absent: lower extremity edema Eye contact: Present: avoids eye contact, refused to answer Cauti Physician Documentation - Urinary Catheter Management Urethral ([place]) Date of Insertion: 08/30/19 Time of Insertion: 07:04 Date of Removal: 09/01/19 Time of Removal: 04:30 Assessment/Plan - Problems/Diagnosis (1) Fracture of hip, left, closed Problem: Acute Qualifiers: Encounter type: initial encounter Qualified Code(s): S72.002A - Fracture of unspecified part of neck of left femur, initial encounter for closed fracture Narrative: She is post-op day #1, and seems to healing appropriately. Pain mgt per ortho. With her history of Alzheimers, she likely will need increased assistance after discharge, and will probably not be able to return to the [facility]. She may not be able to regain her previous level of mobility. Her injury, surgery, and hospitalization could cause increased delirium. (2) Alzheimer's dementia, late onset, with behavioral disturbance Problem: Acute Narrative: Resume memantine and risperidone, her home meds. She does not appear to be having increased agitation currently, but this could occur with the change in environment. She had been starting to have some difficulty swallowing, reported by family in June. This raises concerns about the severity of her illness. (3) Hypertension Problem: Chronic Qualifiers: Hypertension type: essential hypertension Qualified Code(s): I10 - Essential (primary) hypertension Narrative: BP is a bit high, but could be due to pain. She is on a combination lisinopril- HCTZ pill and amlodipine at home. Will not make med adjustments currently. If her BP is consistently greater than 180/100, will then adjust. (4) Atrial fibrillation Problem: Acute Narrative: She was in atrial fibrillation on admission EKG, which was not present on previous from 2000. Her heart rate is in the low 100's, since surgery. If her heart rate were to increase, and remain greater than 110 consistently, will restart metoprolol. Recheck EKG in am. Will need to discuss anticoagulation with her family. (5) Hypokalemia Problem: Acute Narrative: Potassium was 3.0 this morning. Liquid KCl was administered, due to her dysphagia. Recheck K+ in am. (6) Asthma Problem: Chronic Narrative: She was requiring oxygen, but has been weaned today. No wheezes on physical exam today.
--- NOTE | 2019-09-01 07:57 | PN ---
Subjective - Date and Time Seen Date: 09/01/19 Time: 07:53 Subjective Narrative: Unable to obtain any subjective from patient as she has severe dementia. Objective Objective Narrative: Left hip bandages clean dry intact without any evidence of bloody breakthrough. Labs reviewed. BMP is improved. Hemoglobin did drop approximately 2 g. Patient is running mildly tachycardic in low 100s with elevated blood pressure. Logroll test patient does respond verbally discomfort on the left leg but she also does on her right lower extremity with this test. - Vitals Vitals: Last Vital Signs Temp 37.2 C 08/31/19 17:00 Pulse 102 H 09/01/19 04:47 Resp 18 09/01/19 04:47 BP 158/86 H 09/01/19 04:47 Pulse Ox 97 09/01/19 04:47 - Abnormal Lab Findings Abnormal Lab Findings: Abnormal Lab Results 09/01/19 09/01/19 Range/Units 06:10 06:10 RBC 3.90 L (4.2-5.4) M/mm3 Hgb 12.4 L (12.5-16.0) gm/dL MCH 31.8 H (27-31) pg Plt Count 144 L (150-450) K/mm3 Potassium 3.0 L (3.4-4.6) mmol/L Random Glucose 122 H (70-110) mg/dL Cauti Physician Documentation - Urinary Catheter Management Urethral ([place]udson) Date of Insertion: 08/30/19 Time of Insertion: 07:04 Date of Removal: 09/01/19 Time of Removal: 04:30 Assessment/Plan Plan Narrative: PT is currently in with patient. Plan is to get her up to a chair this morning. Continue with pain control. Anticoagulation. - Problems/Diagnosis (1) Fracture of hip, left, closed Problem: Acute Qualifiers: Encounter type: initial encounter Qualified Code(s): S72.002A - Fracture of unspecified part of neck of left femur, initial encounter for closed fracture (2) Dementia Problem: Acute (3) Asthma Problem: Chronic (4) Hyperlipidemia Problem: Chronic Qualifiers: Hyperlipidemia type: pure hypercholesterolemia Qualified Code(s): E78.00 - Pure hypercholesterolemia, unspecified; E78.0 - Pure hypercholesterolemia (5) Hypertension Problem: Chronic Qualifiers: Hypertension type: essential hypertension Qualified Code(s): I10 - Essential (primary) hypertension (6) Acute blood loss anemia Problem: Acute Narrative: Recommendations per medical management
[2019-09-01] MEDS: POTASSIUM CHLORIDE 40 MEQ/15 ML LIQUID PO SCH (08:09)
[2019-09-01] MEDS: HYDROcodone/ACETAMINOPHEN 1 EACH TABLET PO PRN ×2 (08:11→13:01)
[2019-09-01] MEDS: MEMANTINE HCL 10 MG TABLET PO SCH ×2 (08:11→20:28)
[2019-09-01] MEDS: HYDROCHLOROTHIAZIDE 12.5 MG CAPSULE PO SCH (08:11)
[2019-09-01] MEDS: LISINOPRIL 10 MG TABLET PO SCH (08:11)
[2019-09-01] MEDS: amLODIPine BESYLATE 5 MG TABLET PO SCH (08:12)
[2019-09-01] MEDS: BLU EMU topical SCH ×2 (08:12→20:36)
[2019-09-01] MEDS: ENOXAPARIN SODIUM 40 MG/0.4 ML SYRG SC SCH (14:51)
[2019-09-01] MEDS: MELATONIN 3,000 MCG TABLET PO SCH (20:28)
[2019-09-01] MEDS: SENNOSIDES/DOCUSATE SODIUM 1 TAB TABLET PO SCH (20:29)
[2019-09-01] MEDS: risperiDONE 0.25 MG TABLET PO SCH (20:29)
[2019-09-01] MEDS: MONTELUKAST SODIUM 10 MG TABLET PO SCH (20:30)
[2019-09-02] MEDS: KETOROLAC TROMETHAMINE 15 MG/ML VIAL IV SCH ×2 (03:59→10:11)
[2019-09-02 06:54] LABS: Albumin * 2.1 gm/dl (3.4-5.0); Anion Gap 10.1 mmol/L (6.8-13.8); BUN/Creatinine Ratio 34.4 (9.0-21.6); Bilirubin, Total 0.6 mg/dL (0.0-1.1); Ca. Corrected For Albumin 9.5 mg/dL (8.4-10.2); Calcium * 8.3 mg/dL (7.9-10.9); Carbon Dioxide 28.1 mmol/L (24-32.6); Potassium 3.2 mmol/L (3.4-4.6); Total Protein 5.3 gm/dL (6.2-8.2)
--- NOTE | 2019-09-02 07:47 | PN ---
Subjective - Date and Time Seen Date: 09/02/19 Time: 07:42 Subjective Narrative: Nursing reports increased somnolence yesterday. She is incontinent of urine. She is unable to express when she was in pain, but was crying yesterday morning with movement. She her temperature was a bit increased yesterday afternoon. She is unable to participate in incentive spirometry. Objective - Review of Systems Generalized/Overall Review: Reports: No Symptoms Reported - Unable to obtain review of systems due to dementia - Vitals Vitals: Last Vital Signs Temp 37.1 C 09/02/19 03:00 Pulse 102 H 09/02/19 03:00 Resp 20 09/02/19 03:00 BP 125/61 09/02/19 03:00 Pulse Ox 96 09/02/19 05:33 - Abnormal Lab Findings Abnormal Lab Findings: Abnormal Lab Results 09/02/19 Range/Units 06:33 Potassium 3.2 L (3.4-4.6) mmol/L BUN/Creatinine Ratio 34.4 H (9.0-21.6) ALT 9 L (19-67) U/L Total Protein 5.3 L (6.2-8.2) gm/dL Albumin 2.1 L (3.4-5.0) gm/dl - Exam Constitutional: Present: No distress, Elderly Respiratory: Present: lungs clear, normal breath sounds Cardiovascular/Chest: Present: regular rate, rhythm Abdomen: Present: soft, nontender Extremity: Present: other - SCDs in place with FIOR hose bilaterally. Absent: lower extremity edema Neurologic: Present: other - does not waken for exam Cauti Physician Documentation - Urinary Catheter Management Urethral ([place]) Date of Insertion: 08/30/19 Time of Insertion: 07:04 Date of Removal: 09/01/19 Time of Removal: 04:30 Assessment/Plan - Problems/Diagnosis (1) Fracture of hip, left, closed Problem: Acute Qualifiers: Encounter type: subsequent encounter Fracture healing: with routine healing Qualified Code(s): S72.002D - Fracture of unspecified part of neck of left femur, subsequent encounter for closed fracture with routine healing Narrative: She is post op day #2 arthroplasty. Pain control with tramadol. [place] was making her more sedated. She has not received IV pain meds in the last 24 alreen rs. Continue PT. She had been living at the [facility], and will not likely be able to return there after DC because she will need extra assistance for mobility. She is at increased risk for complications due to her alzheimer's dementia. Potential DC to facility in 24 to 48 hours. (2) Alzheimer's dementia, late onset, with behavioral disturbance Problem: Acute Narrative: Will need to discuss goals of care with her family. Continue dementia meds. (3) Hypertension Problem: Chronic Qualifiers: Hypertension type: essential hypertension Qualified Code(s): I10 - Essential (primary) hypertension (4) Atrial fibrillation Problem: Resolved Narrative: EKG done this morning showed sinus rhythm. Her afib was likely due to her injury. If it should recur, will discuss anticoagulation with her family. (5) Hypokalemia Problem: Acute Narrative: She did not consume much of her potassium chloride yesterday. Her potassium did increase from 3.0-3.2. Will continue 40 mEq liquid KCl. (6) Asthma Problem: Chronic Narrative: It was documented that she was on room air yesterday and again needed oxygen overnight. We will wean O2 as tolerated.
[2019-09-02] MEDS: MEMANTINE HCL 10 MG TABLET PO SCH ×2 (08:28→20:24)
[2019-09-02] MEDS: amLODIPine BESYLATE 5 MG TABLET PO SCH (08:28)
[2019-09-02] MEDS: HYDROCHLOROTHIAZIDE 12.5 MG CAPSULE PO SCH (08:29)
[2019-09-02] MEDS: LISINOPRIL 10 MG TABLET PO SCH (08:29)
[2019-09-02] MEDS: POTASSIUM CHLORIDE 40 MEQ/15 ML LIQUID PO SCH (08:30)
[2019-09-02] MEDS: BLU EMU topical SCH ×2 (08:34→20:47)
--- NOTE | 2019-09-02 10:23 | PN ---
Subjective - Date and Time Seen Date: 09/02/19 Time: 07:30 Subjective Narrative: Subjective: She is sleeping in bed. She is arousable but somewhat sedated. Was able to get to the chair with maximal assist with therapy. Pain is well- controlled. No other reported concerns Physical exam: Alert and arousable but not oriented secondary to dementia Left lower extremity: Palpable dorsalis pedis pulse. Dressings clean and dry. Able to flex and extend ankle and toes. No excessive drainage. Calf and thigh are soft. Assessment: Postop day 2 status post left hip hemiarthroplasty. Plan: Continue with physical and occupational therapy weightbearing as tolerated and anterior hip precautions. Continue with anticoagulation with Lovenox for a total of 7 days followed by a daily aspirin 325 mg. Pain control with goal to rely on oral medications. Continue bowel regimen. Will need 6 weeks with walker or assitive device to protect joint while ambulating during the recovery process. Discharge planning -from an orthopedic standpoint she can be transferred back to the nursing facility when she is medically sound. Continue with weightbearing as tolerated and anterior hip precautions with physical therapy. Keep wound covered with dry gauze and tape. Do not bathe or soak or shower the wound. Utilize FIOR hose on the surgical leg. Follow-up with orthopedics in approximately 2 to 3 weeks. Objective - Vitals Vitals: Last Vital Signs Temp 36.3 C 09/02/19 07:50 Pulse 78 09/02/19 08:29 Resp 18 09/02/19 07:50 BP 106/63 09/02/19 08:29 Pulse Ox 96 09/02/19 07:50 - Abnormal Lab Findings Abnormal Lab Findings: Abnormal Lab Results 09/02/19 Range/Units 06:33 Potassium 3.2 L (3.4-4.6) mmol/L BUN/Creatinine Ratio 34.4 H (9.0-21.6) ALT 9 L (19-67) U/L Total Protein 5.3 L (6.2-8.2) gm/dL Albumin 2.1 L (3.4-5.0) gm/dl Cauti Physician Documentation - Urinary Catheter Management Urethral ([place]) Date of Insertion: 08/30/19 Time of Insertion: 07:04 Date of Removal: 09/01/19 Time of Removal: 04:30 Assessment/Plan - Problems/Diagnosis (1) Fracture of hip, left, closed Problem: Acute Qualifiers: Encounter type: subsequent encounter Fracture healing: with routine healing Qualified Code(s): S72.002D - Fracture of unspecified part of neck of left femur, subsequent encounter for closed fracture with routine healing
[2019-09-02] MEDS: ENOXAPARIN SODIUM 40 MG/0.4 ML SYRG SC SCH (14:58)
[2019-09-02] MEDS: MELATONIN 3,000 MCG TABLET PO SCH (20:17)
[2019-09-02] MEDS: risperiDONE 0.25 MG TABLET PO SCH (20:24)
[2019-09-02] MEDS: SENNOSIDES/DOCUSATE SODIUM 1 TAB TABLET PO SCH (20:25)
[2019-09-02] MEDS: MONTELUKAST SODIUM 10 MG TABLET PO SCH (20:25)
[2019-09-02] MEDS: traMADol HCL 50 MG TABLET PO PRN (20:28)
[2019-09-03 07:10] LABS: Albumin * 1.9 gm/dl (3.4-5.0); Bilirubin, Total 0.4 mg/dL (0.0-1.1); Ca. Corrected For Albumin 9.9 mg/dL (8.4-10.2); Calcium * 8.5 mg/dL (7.9-10.9); Carbon Dioxide 28.8 mmol/L (24-32.6); Potassium 3.8 mmol/L (3.4-4.6); Total Protein 5.4 gm/dL (6.2-8.2)
--- NOTE | 2019-09-03 08:00 | PN ---
Subjective - Date and Time Seen Date: 09/03/19 Time: 07:57 Subjective Narrative: History obtained from nursing staff. She remains somnolent, but was awake for about an hour yesterday, and recognized her daughter. She was unable to participate in physical therapy. Her blood pressure was low yesterday morning, but recovered without intervention. Objective - Review of Systems Generalized/Overall Review: Reports: No Symptoms Reported - Unable to obtain ROS due to her dementia - Vitals Vitals: Last Vital Signs Temp 36.8 C 09/03/19 00:00 Pulse 88 09/03/19 00:00 Resp 24 H 09/03/19 00:00 BP 120/48 09/03/19 00:00 Pulse Ox 96 09/03/19 07:09 - Abnormal Lab Findings Abnormal Lab Findings: Abnormal Lab Results 09/03/19 Range/Units 06:44 Sodium 143 H (132-142) mmol/L Plasma Sodium 143 H (130-142) mmol/L Chloride 108 H (97-106) mmol/L BUN 29 H (3-23) mg/dL BUN/Creatinine Ratio 50.0 H (9.0-21.6) ALT 13 L (19-67) U/L Total Protein 5.4 L (6.2-8.2) gm/dL Albumin 1.9 L (3.4-5.0) gm/dl - Exam Constitutional: Present: No distress, Somnolent, Elderly Respiratory: Present: normal breath sounds, no respiratory distress Cardiovascular/Chest: Present: regular rate, rhythm Abdomen: Present: soft, nontender Extremity: Present: other - FIOR hose in place bilaterally. Absent: lower extremity edema Eye contact: Present: avoids eye contact Thoughts: Present: other - does not respond to questions, which is her baseline Cauti Physician Documentation - Urinary Catheter Management Urethral ([place]) Date of Insertion: 08/30/19 Time of Insertion: 07:04 Date of Removal: 09/01/19 Time of Removal: 04:30 Assessment/Plan - Problems/Diagnosis (1) Fracture of hip, left, closed Problem: Acute Qualifiers: Encounter type: subsequent encounter Fracture healing: with routine healing Qualified Code(s): S72.002D - Fracture of unspecified part of neck of left femur, subsequent encounter for closed fracture with routine healing Narrative: OK to DC to facility. Pain appears to be controlled with po medications. Encourage physical therapy, but with her advanced dementia, this will be difficult. She is at risk for nursing home complications from limited mobility. (2) Alzheimer's dementia, late onset, with behavioral disturbance Problem: Acute Narrative: She does not respond to questions. At her outpatient visit with me in June, she slept through that visit. Goals of care discussions with family were encouraged at that visit. Again discussed with family yesterday the severity of her injury due to her comorbidities. She had been developing swallowing difficulty in June, and medications were crushed. Her po intake has been decreased, and her albumin is decreasing. Continue to encourage boost/ensure at least tid. (3) Hypertension Problem: Chronic Qualifiers: Hypertension type: essential hypertension Qualified Code(s): I10 - Essential (primary) hypertension (4) Atrial fibrillation Problem: Resolved Narrative: Present on admission. yesterday's EKG showed sinus rhythm. Should it recur, will need to discuss anticoagulation with family. (5) Hypokalemia Problem: Resolved Narrative: Potassium was 3.8 this morning after replacing with 40 mEq yesterday. (6) Asthma Problem: Chronic Narrative: Wean oxygen, as she does not use at baseline. She has intermittently used 1 L via NC. (7) Hypoalbuminemia Problem: Acute Narrative: Due to decreased po intake. Encourage boost/ensure, and protein intake in her diet. If she is unable to eat, will need to discuss family's wishes for alternate feeding methods.
[2019-09-03] MEDS: BLU EMU topical SCH ×2 (08:26→20:46)
[2019-09-03] MEDS: POTASSIUM CHLORIDE 40 MEQ/15 ML LIQUID PO SCH (10:56)
[2019-09-03] MEDS: POLYETHYLENE GLYCOL 3350 17 GM PACKET PO SCH (10:59)
[2019-09-03] MEDS: MEMANTINE HCL 10 MG TABLET PO SCH ×3 (11:02→20:46)
[2019-09-03] MEDS: traMADol HCL 50 MG TABLET PO PRN ×2 (11:59→19:33)
[2019-09-03] MEDS: ACETAMINOPHEN 500 MG TABLET PO PRN (13:19)
[2019-09-03] MEDS: ENOXAPARIN SODIUM 40 MG/0.4 ML SYRG SC SCH (15:29)
[2019-09-03] MEDS: MELATONIN 3,000 MCG TABLET PO SCH ×2 (19:31→20:46)
[2019-09-03] MEDS: risperiDONE 0.25 MG TABLET PO SCH ×2 (19:31→20:47)
[2019-09-03] MEDS: SENNOSIDES/DOCUSATE SODIUM 1 TAB TABLET PO SCH ×2 (19:32→20:47)
[2019-09-03] MEDS: MONTELUKAST SODIUM 10 MG TABLET PO SCH ×2 (19:33→20:47)
[2019-09-04] MEDS: traMADol HCL 50 MG TABLET PO PRN ×2 (07:18→20:36)
[2019-09-04] MEDS: POTASSIUM CHLORIDE 40 MEQ/15 ML LIQUID PO SCH (09:24)
[2019-09-04] MEDS: MEMANTINE HCL 10 MG TABLET PO SCH ×2 (09:26→20:36)
[2019-09-04] MEDS: POLYETHYLENE GLYCOL 3350 17 GM PACKET PO SCH (09:26)
[2019-09-04] MEDS: LISINOPRIL 10 MG TABLET PO SCH (09:35)
[2019-09-04] MEDS: BLU EMU topical SCH ×2 (09:35→20:37)
--- NOTE | 2019-09-04 09:44 | PN ---
Subjective - Date and Time Seen Date: 09/04/19 Time: 08:57 Subjective Narrative: Patient was able to work some with physical therapy yesterday she was more alert and ate for her family. No new concerns. Objective - Review of Systems Generalized/Overall Review: Denies: Fever Respiratory: Denies: Cough Cardiac: Denies: Edema Abdominal: Denies: Vomiting Genitourinary Symptoms: Reports: No Symptoms Reported Skin: Reports: No Symptoms Reported - Vitals Vitals: Last Vital Signs Temp 37.3 C 09/04/19 03:30 Pulse 91 09/04/19 03:30 Resp 18 09/04/19 03:30 BP 171/86 H 09/04/19 03:30 Pulse Ox 94 09/04/19 08:01 - Exam Constitutional: Present: Elderly Respiratory: Present: lungs clear, normal breath sounds Cardiovascular/Chest: Present: regular rate, rhythm Abdomen: Present: Normal bowel sounds, soft, tender - moans with left sided abdominal palpation Extremity: Absent: lower extremity edema Skin Exam: Present: other - no strikethrough of left lateral hip bandage Eye contact: Present: other - briefly wakens and makes eye contact Cauti Physician Documentation - Urinary Catheter Management Urethral ([place]) Date of Insertion: 08/30/19 Time of Insertion: 07:04 Date of Removal: 09/01/19 Time of Removal: 04:30 Assessment/Plan - Problems/Diagnosis (1) Fracture of hip, left, closed Problem: Acute Qualifiers: Encounter type: subsequent encounter Fracture healing: with routine healing Qualified Code(s): S72.002D - Fracture of unspecified part of neck of left femur, subsequent encounter for closed fracture with routine healing Narrative: She is POD #4. OK to DC to facility. Pain appears to be controlled with po medications. Encourage physical therapy, but with her advanced dementia, this will be difficult. 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 (2) Alzheimer's dementia, late onset, with behavioral disturbance Problem: Acute Narrative: She does not respond to questions, which I believe is her baseline. At her outpatient visit with me in June, she slept through that visit. She was more alert yesterday. Goals of care discussions with family were encouraged at that visit. Again discussed with family the severity of her injury due to her comorbidities. She had been developing swallowing difficulty in June, and medications were crushed. Her po intake has been decreased, and her albumin is decreasing. Continue to encourage boost/ensure at least tid. (3) Hypertension Problem: Chronic Qualifiers: Hypertension type: essential hypertension Qualified Code(s): I10 - Essential (primary) hypertension Narrative: BP was low 2 days ago, and antihypertensives were held. She had several BP readings with systolic readings greater than 150, so her home lisinopril has been resumed. If she tolerates this, will also resume her triamterene hydrochlorothiazide. (4) Atrial fibrillation Problem: Resolved Narrative: Present on admission. EKG done 09/02 showed sinus rhythm. Should afib recur, will need to discuss anticoagulation with family. (5) Hypokalemia Problem: Resolved Narrative: Potassium improved to 3.8 after p.o. supplementation. (6) Asthma Problem: Chronic Narrative: She has required intermittent oxygen more often than not during this admission. If she is unable to wean, will need to assess if she needs oxygen after discharge. (7) Hypoalbuminemia Problem: Acute Narrative: P.o. intake was reduced, but was better yesterday. Encourage boost or Ensure with meals.
[2019-09-04] MEDS: ACETAMINOPHEN 500 MG TABLET PO PRN (13:11)
[2019-09-04] MEDS: ENOXAPARIN SODIUM 40 MG/0.4 ML SYRG SC SCH (14:48)
[2019-09-04] MEDS: risperiDONE 0.25 MG TABLET PO SCH (20:37)
[2019-09-04] MEDS: SENNOSIDES/DOCUSATE SODIUM 1 TAB TABLET PO SCH (20:37)
[2019-09-04] MEDS: MONTELUKAST SODIUM 10 MG TABLET PO SCH (20:37)
[2019-09-04] MEDS: MELATONIN 3,000 MCG TABLET PO SCH (20:37)
[2019-09-05] MEDS: BLU EMU topical SCH ×2 (08:03→20:57)
[2019-09-05] MEDS: LISINOPRIL 10 MG TABLET PO SCH (08:03)
[2019-09-05] MEDS: MEMANTINE HCL 10 MG TABLET PO SCH ×2 (08:03→20:56)
[2019-09-05] MEDS: POLYETHYLENE GLYCOL 3350 17 GM PACKET PO SCH (08:03)
[2019-09-05] MEDS: amLODIPine BESYLATE 5 MG TABLET PO SCH (08:04)
[2019-09-05] MEDS: HYDROCHLOROTHIAZIDE 12.5 MG CAPSULE PO SCH (08:04)
[2019-09-05] MEDS: traMADol HCL 50 MG TABLET PO PRN ×2 (08:07→20:56)
[2019-09-05] MEDS: POTASSIUM CHLORIDE 40 MEQ/15 ML LIQUID PO SCH (08:09)
--- NOTE | 2019-09-05 09:19 | PN ---
Subjective - Date and Time Seen Date: 09/05/19 Time: 08:51 Subjective Narrative: No new concerns per nursing. She still decreases to 88% when taken off NC. She is eating approximately 25% of meals. Objective - Review of Systems Generalized/Overall Review: Denies: Fever Respiratory: Denies: Shortness of Breath Cardiac: Denies: Edema Abdominal: Denies: Vomiting Genitourinary Symptoms: Reports: No Symptoms Reported Neurological: Reports: No Symptoms Reported Skin: Reports: No Symptoms Reported - Vitals Vitals: Last Vital Signs Temp 37.0 C 09/05/19 08:00 Pulse 103 H 09/05/19 08:03 Resp 18 09/05/19 08:00 BP 158/76 H 09/05/19 08:03 Pulse Ox 96 09/05/19 08:00 - Exam Constitutional: Present: No distress, Elderly Respiratory: Present: normal breath sounds, no respiratory distress, other - wearing NC Cardiovascular/Chest: Present: regular rate, rhythm - HR 100. Absent: edema Abdomen: Present: soft, nontender Extremity: Present: other - FIOR hose in place bilaterally. Absent: lower extremity edema Eye contact: Present: other - opens eyes during exam, but does not respond to questions Cauti Physician Documentation - Urinary Catheter Management Urethral ([place]) Urethral Indwelling: No Date of Insertion: 08/30/19 Time of Insertion: 07:04 Date of Removal: 09/01/19 Time of Removal: 04:30 Assessment/Plan - Problems/Diagnosis (1) Fracture of hip, left, closed Problem: Acute Qualifiers: Encounter type: subsequent encounter Fracture healing: with routine healing Qualified Code(s): S72.002D - Fracture of unspecified part of neck of left femur, subsequent encounter for closed fracture with routine healing Narrative: Nursing reports her incision is intact. She is POD #5. She is up to the chair per Whitney this morning. OK to DC to facility, but since today is a weekend, she will here for 2 additional days. Pain appears to be controlled with po medications. Encourage physical therapy, but with her advanced dementia, this will be difficult. 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 OK to DC her IV. (2) Alzheimer's dementia, late onset, with behavioral disturbance Problem: Chronic Narrative: She does not respond to questions. At her outpatient visit with me in June, she slept through that visit. Goals of care discussions with family were encouraged at that visit. Again discussed with family during this stay the severity of her injury due to her comorbidities. She had been developing swallowing difficulty in June, and medications were crushed. Her po intake has been decreased, and her albumin is decreasing. Continue to encourage boost/ensure at least tid. Continue home memantine and risperdol. (3) Hypertension Problem: Chronic Qualifiers: Hypertension type: essential hypertension Qualified Code(s): I10 - Essential (primary) hypertension Narrative: Her BP is elevated with systolic readings in the 160s. Will increase her amlodipine dose to 5 mg daily. (4) Atrial fibrillation Problem: Resolved Narrative: Present on admission. Done 09/02 showed sinus rhythm. Should it recur, will need to discuss anticoagulation with family. (5) Hypokalemia Problem: Resolved Narrative: Her potassium resolved after po repletion. Will again check today to ensure she is still within normal limits. (6) Asthma Problem: Chronic Narrative: She has been unable to wean from O2, and may require oxygen after DC. (7) Hypoalbuminemia Problem: Acute Narrative: Her albumin is decreased, likely due to her decreased po intake. Encourage boost/ensure with meals.
[2019-09-05 10:10] LABS: Albumin * 2.3 gm/dl (3.4-5.0); Anion Gap 12.8 mmol/L (6.8-13.8); BUN/Creatinine Ratio 39.3 (9.0-21.6); Bilirubin, Total 0.4 mg/dL (0.0-1.1); Ca. Corrected For Albumin 9.8 mg/dL (8.4-10.2); Calcium * 8.8 mg/dL (7.9-10.9); Carbon Dioxide 29.5 mmol/L (24-32.6); Potassium 4.3 mmol/L (3.4-4.6); Total Protein 6.2 gm/dL (6.2-8.2)
[2019-09-05] MEDS: ENOXAPARIN SODIUM 40 MG/0.4 ML SYRG SC SCH (14:28)
[2019-09-05] MEDS: MELATONIN 3,000 MCG TABLET PO SCH (20:57)
[2019-09-05] MEDS: risperiDONE 0.25 MG TABLET PO SCH (20:57)
[2019-09-05] MEDS: MONTELUKAST SODIUM 10 MG TABLET PO SCH (20:57)
[2019-09-05] MEDS: SENNOSIDES/DOCUSATE SODIUM 1 TAB TABLET PO SCH (20:57)
[2019-09-06] MEDS: POLYETHYLENE GLYCOL 3350 17 GM PACKET PO SCH (08:45)
[2019-09-06] MEDS: LISINOPRIL 10 MG TABLET PO SCH (08:45)
[2019-09-06] MEDS: MEMANTINE HCL 10 MG TABLET PO SCH ×2 (08:45→21:25)
[2019-09-06] MEDS: ACETAMINOPHEN 500 MG TABLET PO PRN (08:45)
[2019-09-06] MEDS: amLODIPine BESYLATE 5 MG TABLET PO SCH (08:45)
[2019-09-06] MEDS: BLU EMU topical SCH ×2 (08:46→21:26)
[2019-09-06] MEDS: HYDROCHLOROTHIAZIDE 12.5 MG CAPSULE PO SCH (08:46)
[2019-09-06] MEDS: POTASSIUM CHLORIDE 40 MEQ/15 ML LIQUID PO SCH (08:46)
--- NOTE | 2019-09-06 09:40 | PN ---
Subjective - Date and Time Seen Date: 09/06/19 Time: 09:09 Subjective Narrative: No new concerns per nursing staff who helped move her this morning. She is unable to participate in giving history. Objective - Review of Systems Generalized/Overall Review: Reports: No Symptoms Reported - She is unable to contribute to ROS due to mentation, her baseline - Vitals Vitals: Last Vital Signs Temp 36.9 C 09/06/19 06:41 Pulse 91 09/06/19 08:45 Resp 14 09/06/19 06:41 BP 136/65 09/06/19 08:45 Pulse Ox 96 09/06/19 06:41 - Abnormal Lab Findings Abnormal Lab Findings: Abnormal Lab Results 09/05/19 Range/Units 09:34 BUN 24 H (3-23) mg/dL BUN/Creatinine Ratio 39.3 H (9.0-21.6) Random Glucose 121 H (70-110) mg/dL ALT 12 L (19-67) U/L Albumin 2.3 L (3.4-5.0) gm/dl - Exam Constitutional: Present: No distress, Somnolent, Elderly Respiratory: Present: lungs clear, normal breath sounds, other - room air Cardiovascular/Chest: Present: regular rate, rhythm Abdomen: Present: Normal bowel sounds, soft Extremity: Present: other - no erythema anterior to incisional bandage. Absent: lower extremity edema - FIOR hose in place Cauti Physician Documentation - Urinary Catheter Management Urethral ([place]) Urethral Indwelling: No Date of Insertion: 08/30/19 Time of Insertion: 07:04 Date of Removal: 09/01/19 Time of Removal: 04:30 Assessment/Plan - Problems/Diagnosis (1) Fracture of hip, left, closed Problem: Acute Qualifiers: Encounter type: subsequent encounter Fracture healing: with routine healing Qualified Code(s): S72.002D - Fracture of unspecified part of neck of left f lara, subsequent encounter for closed fracture with routine healing Narrative: Nursing reports her bandage is free of strikethrough. She is POD #6. She is again up to the chair per Whitney this morning. OK to DC to facility, but since today is a weekend, she will here at least until tomorrow for alf placement. Pain appears to be controlled with po medications. Encourage physical therapy, but with her advanced dementia, this will be difficult. 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 (2) Alzheimer's dementia, late onset, with behavioral disturbance Problem: Chronic Narrative: She does not respond to questions. At her outpatient visit with me in June, she slept through that visit. Goals of care discussions with family were encouraged at that visit. Again discussed with family during this stay the severity of her injury due to her comorbidities. She had been developing swallowing difficulty in June, and medications were crushed. PO intake is decreased, especially in the mornings. Her albumin did increase on yesterday's labs, however. Continue to encourage boost/ensure at least tid. Continue home memantine and risperdal. (3) Hypertension Problem: Chronic Qualifiers: Hypertension type: essential hypertension Qualified Code(s): I10 - Essential (primary) hypertension Narrative: Her BP had been somewhat low, and antihypertensive were held. They were restarted over the last few days for elevated BP. Today's BP readings are appropriate at 136/65. (4) Atrial fibrillation Problem: Resolved Narrative: Present on admission. Done 09/02 showed sinus rhythm. HR sounds regular on exam. Should afib recur, will need to discuss anticoagulation with family. (5) Hypokalemia Problem: Resolved Narrative: She required two days of potassium repletion, and her K+ has been within normal limits for the last two CMPs. Her level was 4.3 yesterday. (6) Asthma Problem: Chronic Narrative: She required oxygen via NC for several days, but was able to wean yesterday. Resume oxygen administration for persistent levels less than 93%. (7) Hypoalbuminemia Problem: Acute Narrative: Her po intake is somewhat better. Albumin yesterday was 2.3, up from 1.9. Continue boost/ensure with meals.
[2019-09-06] MEDS: ENOXAPARIN SODIUM 40 MG/0.4 ML SYRG SC SCH (15:48)
[2019-09-06] MEDS: SENNOSIDES/DOCUSATE SODIUM 1 TAB TABLET PO SCH (21:25)
[2019-09-06] MEDS: MELATONIN 3,000 MCG TABLET PO SCH (21:25)
[2019-09-06] MEDS: traMADol HCL 50 MG TABLET PO PRN (21:25)
[2019-09-06] MEDS: risperiDONE 0.25 MG TABLET PO SCH (21:25)
[2019-09-06] MEDS: MONTELUKAST SODIUM 10 MG TABLET PO SCH (21:26)
[2019-09-07] MEDS: HYDROCHLOROTHIAZIDE 12.5 MG CAPSULE PO SCH (07:59)
[2019-09-07] MEDS: BLU EMU topical SCH (07:59)
[2019-09-07] MEDS: LISINOPRIL 10 MG TABLET PO SCH (07:59)
[2019-09-07] MEDS: MEMANTINE HCL 10 MG TABLET PO SCH (07:59)
[2019-09-07] MEDS: POLYETHYLENE GLYCOL 3350 17 GM PACKET PO SCH (07:59)
[2019-09-07] MEDS: amLODIPine BESYLATE 5 MG TABLET PO SCH (08:00)
[2019-09-07] MEDS: POTASSIUM CHLORIDE 40 MEQ/15 ML LIQUID PO SCH (08:01)
[2019-09-07] MEDS: ACETAMINOPHEN 500 MG TABLET PO PRN (09:46)
--- NOTE | 2019-09-07 09:53 | DS ---
(1) Fracture of hip, left, closed Problem: Acute Qualifiers: Encounter type: subsequent encounter Fracture healing: with routine healing Qualified Code(s): S72.002D - Fracture of unspecified part of neck of left femur, subsequent encounter for closed fracture with routine healing (2) Alzheimer's dementia, late onset, with behavioral disturbance Problem: Chronic (3) Hypertension Problem: Chronic Qualifiers: Hypertension type: essential hypertension Qualified Code(s): I10 - Essential (primary) hypertension (4) Atrial fibrillation Problem: Resolved (5) Hypokalemia Problem: Resolved (6) Asthma Problem: Chronic (7) Hypoalbuminemia Problem: Acute Date of Discharge:: 09/07/19 Description of Stay: Patient fell from the toilet at the [facility], and sustain a left hip fracture and underwent surgical repair. Due to her dementia, her ability to participate with PT was somewhat limited. Her pain was controlled with tramadol, which she was taking once or twice a day. As copied from Dr. Nunes's note: "Continue with physical and occupational therapy weightbearing as tolerated and anterior hip precautions. Continue with anticoagulation with Lovenox for a total of 7 days followed by a daily aspirin 325 mg. Pain control with goal to rely on oral medications. Continue bowel regimen. Will need 6 weeks with walker or assitive device to protect joint while ambulating during the recovery process. Discharge planning -from an orthopedic standpoint she can be transferred back to the nursing facility when she is medically sound. Continue with weightbearing as tolerated and anterior hip precautions with physical therapy. Keep wound covered with dry gauze and tape. Do not bathe or soak or shower the wound. Utilize FIOR hose on the surgical leg. Follow-up with orthopedics in approximately 2 to 3 weeks." She has a history of Alzheimer's dementia. She does not respond to questions. At her outpatient visit with me in June, she slept through that visit. Goals of care discussions with family were encouraged at that visit. Again discussed with family during this stay the severity of her injury due to her comorbidities. She had been developing swallowing difficulty in June, and medications were crushed. PO intake is decreased, especially in the mornings. She required oxygen via NC for several days, but was able to wean 14. Her potassium and albumin were low during her stay. K+ was repleted with po supplementation. Encourage boost/ensure tid with meals. Admission EKG showed atrial fibrillation, but her rhythm was NSR on recheck. Should afib recur, will need to discuss anticoagulation with family. She will complete the 7 days of lovenox prior to DC today, and continue with 325 mg daily aspirin per ortho. Procedures Performed: see notes below List Procedures: Left hip cemented liang-arthroplasty Results and Findings: Lab Pending Results 08/30/19 05:50: WBC 8.2, RBC 4.53, Hgb 14.2, Hct 44.0, MCV 97.1, MCH 31.3 H, MCHC 32.3, RDW 13.2, Plt Count 204, MPV 9.1, Immature Gran % (Auto) 0.50 H, Immature Gran # (Auto) 0.04 H, Neutrophils % 60.0, Lymphocytes % 31.4, Monocytes % 6.2, Eosinophils % 1.3, Basophils % 0.6, Nucleated RBC % 0.0, Neutrophils # 4.9, Lymphocytes # 2.58, Monocytes # 0.5, Eosinophils # 0.1, Absolute Basophils 0.1 08/30/19 05:50: PTT (Rhea) 26.0 08/30/19 05:50: Sodium 145 H, Plasma Sodium 145 H, Potassium 3.4, Chloride 107 H, Carbon Dioxide 29.9, Anion Gap 11.5, BUN 25 H, Creatinine 0.77, Est GFR (Non- Af Amer) 75, BUN/Creatinine Ratio 32.5 H, Random Glucose 112 H, Calcium 9.2, Calcium Adj for Albumin 9.4, Total Bilirubin 0.3, AST 15, ALT 13 L, Alkaline Phosphatase 71, B-Natriuretic Peptide 83, Total Protein 6.9, Albumin 3.4 08/30/19 05:50: PT 10.7, INR (Anticoag Therapy) 1.08 08/30/19 05:50: Blood Type O Positive, Antibody Screen Negative 08/31/19 06:37: WBC 9.4, RBC 4.37, Hgb 13.7, Hct 41.5, MCV 95.0, MCH 31.4 H, MCHC 33.0, RDW 13.2, Plt Count 187, MPV 9.1, Immature Gran % (Auto) 0.30, Immature Gran # (Auto) 0.03, Neutrophils % 79.9 H, Lymphocytes % 11.3 L, Monocytes % 7.4, Eosinophils % 0.6, Basophils % 0.5, Nucleated RBC % 0.0, Neutrophils # 7.5 H, Lymphocytes # 1.06 L, Monocytes # 0.7, Eosinophils # 0.1, Absolute Basophils 0.1 08/31/19 06:37: Sodium 140, Plasma Sodium 140, Potassium 3.4, Chloride 107 H, Carbon Dioxide 27.8, Anion Gap 8.6, BUN 14, Creatinine 0.50, Est GFR (Non-Af Amer) 124 D, BUN/Creatinine Ratio 28.0 H, Random Glucose 112 H, Calcium 8.2, Calcium Adj for Albumin 8.8, Total Bilirubin 0.8, AST 14, ALT 12 L, Alkaline Phosphatase 58, Total Protein 6.4, Albumin 2.8 L 08/31/19 16:20: Pathology Specimen Sent to path 09/01/19 06:10: WBC 9.9, RBC 3.90 L, Hgb 12.4 L, Hct 37.0, MCV 94.9, MCH 31.8 H, MCHC 33.5, RDW 13.2, Plt Count 144 L, MPV 9.3 09/01/19 06:10: Sodium 139, Plasma Sodium 139, Potassium 3.0 L, Chloride 104, Carbon Dioxide 26.9, Anion Gap 11.1, BUN 12, Creatinine 0.59, Est GFR (Non-Af Amer) 102, BUN/Creatinine Ratio 20.3, Random Glucose 122 H, Calcium 8.1 09/02/19 06:33: Sodium 141, Plasma Sodium 141, Potassium 3.2 L, Chloride 106, Carbon Dioxide 28.1, Anion Gap 10.1, BUN 21 D, Creatinine 0.61, Est GFR (Non-Af Amer) 98, BUN/Creatinine Ratio 34.4 H, Random Glucose 104, Calcium 8.3, Calcium Adj for Albumin 9.5, Total Bilirubin 0.6, AST 16, ALT 9 L, Alkaline Phosphatase 57, Total Protein 5.3 L, Albumin 2.1 L 09/03/19 06:44: Sodium 143 H, Plasma Sodium 143 H, Potassium 3.8, Chloride 108 H, Carbon Dioxide 28.8, Anion Gap 10.0, BUN 29 H, Creatinine 0.58, Est GFR (Non- Af Amer) 104, BUN/Creatinine Ratio 50.0 H, Random Glucose 98, Calcium 8.5, Calcium Adj for Albumin 9.9, Total Bilirubin 0.4, AST 12, ALT 13 L, Alkaline Phosphatase 56, Total Protein 5.4 L, Albumin 1.9 L 09/05/19 09:34: Sodium 142, Plasma Sodium 142, Potassium 4.3, Chloride 104, Carbon Dioxide 29.5, Anion Gap 12.8, BUN 24 H, Creatinine 0.61, Est GFR (Non-Af Amer) 98, BUN/Creatinine Ratio 39.3 H, Random Glucose 121 H, Calcium 8.8, Calcium Adj for Albumin 9.8, Total Bilirubin 0.4, AST 13, ALT 12 L, Alkaline Phosphatase 65, Total Protein 6.2, Albumin 2.3 L Discharge Location: [facility] Disposition: SNF Condition: Fair Level of Care: SNF Discharge Activity: Weight bearing - as tolerated Discharge Diet: Resume usual diet [facility] Therapy: Physical Therapy, Occupation Therapy Referrals: Elena Sanford DO [Primary Care Provider] - Two Weeks Additional Patient Instructions (free text): To [facility] at discharge, please fax discharge information and call them. Prescriptions (Any new or edited meds): Aspirin 325 mg PO DAILY #28 tab Transmission Status: Pending to [facility] Polyethylene Glycol 3350 [Miralax] 17 gm PO DAILY PRN #1 bottle PRN Reason: Constipation Transmission Status: Pending to [facility] Acetaminophen [Tylenol] 1,000 mg PO Q6H PRN #90 tab PRN Reason: Mild Pain (Pain Scale 1-3) Transmission Status: Pending to [facility] traMADol HCL [Ultram] 50 mg PO Q8H PRN #42 tab PRN Reason: Pain Transmission Status: Sent to [facility] Complete Home Medications List: Complete Home Medication List: melatonin 10 mg tablet 10 mg PO HS 12/05/18 naproxen sodium 220 mg tablet 220 mg PO BID PRN 12/05/18 Albuterol Sulfate [Proair Hfa] 2 puff INHALATION Q4H PRN 08/30/19 Amlodipine Besylate 2.5 mg PO DAILY 08/30/19 Timothy Emu Cream 1 applic TOPICAL BID 08/30/19 Carboxymethylcellulose Sodium [Refresh Liquigel] 1 drp EACHEYE Q6H PRN 08/30/19 Lisinopril/Hydrochlorothiazide [Lisinopril-Hctz 10-12.5 mg Tab] 1 ea PO DAILY 08/30/19 Memantine HCl 5 mg PO BID 08/30/19 Menthol [Biofreeze] 1 applic TOPICAL TID PRN 08/30/19 Montelukast Sodium [Singulair] 10 mg PO HS 08/30/19 risperiDONE [Risperidone] 0.5 mg PO DAILY 08/30/19 Acetaminophen [Tylenol] 1,000 mg PO Q6H PRN #90 tab 09/07/19 Aspirin 325 mg PO DAILY #28 tab 09/07/19 Polyethylene Glycol 3350 [Miralax] 17 gm PO DAILY PRN #1 bottle 09/07/19 traMADol HCL [Ultram] 50 mg PO Q8H PRN #42 tab 09/07/19
--- NOTE | 2019-09-07 12:52 | PN ---
Subjective - Date and Time Seen Date: 09/07/19 Time: 12:50 Subjective Narrative: Subjective: She is sitting in the chair - alert but not oriented. Was able to get to the chair with maximal assist with therapy. Pain is well-controlled. No other reported concerns Physical exam: Alert but not oriented secondary to dementia Left lower extremity: Palpable dorsalis pedis pulse. Wound benign, ritchie in place - no sign of infection. Able to flex and extend ankle and toes. Assessment: Postop day 7 status post left hip hemiarthroplasty. Plan: Continue with physical and occupational therapy weightbearing as tolerated and anterior hip precautions. Continue with anticoagulation with a daily aspirin 325 mg. Pain control with goal to rely on oral medications. Continue bowel regimen. Will need 6 weeks with walker or assitive device to protect joint while ambulating during the recovery process. Discharge planning -from an orthopedic standpoint she can be transferred back to the nursing facility when she is medically sound. Continue with weightbearing as tolerated and anterior hip precautions with physical therapy. Keep wound covered with dry gauze and tape. Do not bathe or soak or shower the wound. Utilize FIOR hose on the surgical leg. Follow-up with orthopedics in approximately 2 to 3 weeks. Objective - Vitals Vitals: Last Vital Signs Temp 36.6 C 09/07/19 11:03 Pulse 73 09/07/19 11:03 Resp 12 09/07/19 11:03 BP 121/61 09/07/19 11:03 Pulse Ox 94 09/07/19 11:03 Cauti Physician Documentation - Urinary Catheter Management Urethral ([place]) Urethral Indwelling: No Date of Insertion: 08/30/19 Time of Insertion: 07:04 Date of Removal: 09/01/19 Time of Removal: 04:30 Assessment/Plan - Problems/Diagnosis (1) Fracture of hip, left, closed Problem: Acute Qualifiers: Encounter type: subsequent encounter Fracture healing: with routine healing Qualified Code(s): S72.002D - Fracture of unspecified part of neck of left femur, subsequent encounter for closed fracture with routine healing
[2019-09-07] MEDS: ENOXAPARIN SODIUM 40 MG/0.4 ML SYRG SC SCH (13:10)
[2019-09-07 14:10] VITALS: BP 124/42
== END 2019-09-07 14:03 | DRG 470 ==
LOC: ER 05:14 → MS 06:41
PROVIDERS: ADMIT Family Medicine; ATTEND Family Medicine
DX: G30.1 Alzheimer's disease with late onset; E03.9 Hypothyroidism, unspecified; E87.6 Hypokalemia; J45.909 Unspecified asthma, uncomplicated; I48.91 Unspecified atrial fibrillation; W01.0XXA Fall on same level from slipping, tripping and stumbling without subsequent striking against object, initial encounter; M15.9 Polyosteoarthritis, unspecified; F02.81 Dementia in other diseases classified elsewhere, unspecified severity, with behavioral disturbance; S72.002A Fracture of unspecified part of neck of left femur, initial encounter for closed fracture; I10 Essential (primary) hypertension; E88.09 Other disorders of plasma-protein metabolism, not elsewhere classified; D62 Acute posthemorrhagic anemia
CPT/HCPCS: 36415; 71010; 71045; 73502; 80048; 80053; 83519; 83880; 85025; 85027; 85610; 85730; 86850; 87081; 88305; 88311; 93005; 97110; 97162; 97165; 97530; 97535; 99285